=== PATIENT | female | born 1965 | race Caucasian/White ===

== ENCOUNTER 2021-03-27 20:57 | Emergency (ER) | payer BC, MEDICAID ==
[~2021-03-27] VITALS: Ht 152.4 cm; Wt 79.0 kg
[2021-03-28] MEDS ORDERED: HYDROCODONE/ACETAMINOPHEN 10/325MG TABLET PO ONE (02:30)
[2021-03-28 02:36] VITALS: BP 140/91
== END 2021-03-28 04:18 | disposition home or self-care (01) ==
LOC: ER 21:16
DX: R07.89 Other chest pain (principal); M54.5 Low back pain; M54.9 Dorsalgia, unspecified; I10 Essential (primary) hypertension; E78.00 Pure hypercholesterolemia, unspecified; E11.9 Type 2 diabetes mellitus without complications; Z90.49 Acquired absence of other specified parts of digestive tract
CPT/HCPCS: 71045; 72100; 74018; 99284

== ENCOUNTER 2024-06-19 03:27 | Emergency (ER) | payer MEDICAID ==
[~2024-06-19] VITALS: Ht 152.4 cm; Wt 74.5 kg
[2024-06-19 03:52] VITALS: O2SAT 98
[2024-06-19] MEDS: IBUPROFEN 600MG TABLET PO ONE (04:29)
[2024-06-19] MEDS ORDERED: IBUP-2029 MT (05:37)
[2024-06-19 06:10] VITALS: BP 126/75; PULSE 81; RESP 16; TEMP 36.78072; O2SAT 99
== END 2024-06-19 08:01 | disposition home or self-care (01) ==
LOC: ER 03:27
DX: S90.31XA Contusion of right foot, initial encounter (principal); M54.2 Cervicalgia; M54.6 Pain in thoracic spine; E11.9 Type 2 diabetes mellitus without complications; E78.00 Pure hypercholesterolemia, unspecified; I10 Essential (primary) hypertension; Z90.49 Acquired absence of other specified parts of digestive tract; Z98.890 Other specified postprocedural states; W18.39XA Other fall on same level, initial encounter; Y93.89 Activity, other specified; Y92.89 Other specified places as the place of occurrence of the external cause; Y99.8 Other external cause status
CPT/HCPCS: 71045; 73610; 73630; 99284